=== PATIENT | male | born 1970 | race Caucasian/White ===

== ENCOUNTER 2017-05-20 22:36 | Inpatient (IN) | payer MEDICAID ==
[~2017-05-20] VITALS: Ht 175.3 cm; Wt 95.3 kg
[2017-05-20 23:25] VITALS: BP_SYST 104
--- NOTE | 2017-05-20 23:25 | NUR ---
Patient triaged and placed in waiting room. VSS and patient appears in no acute distress at this time. Accompanied by family, awaiting available bed, and MD notified of need for MSE.
--- NOTE | 2017-05-20 23:30 | NUR ---
Patient to ER bed 5 to gown for evaluation. Side rails up. Report given to Sandi STILES.
--- NOTE | 2017-05-20 23:35 | NUR ---
Patient to ER C/O 07/07 RLQ abdominal pain for the past 3 weeks, "on and off" states Hx of pancreatitis and multiple surgeries on pancreas. Denies N/V/D, C/O dark stool, afebrile, AAOx4, unlabored breathing, no signs of acute distress.
--- NOTE | 2017-05-20 23:39 | NUR ---
ER MD Garrett at bedside evaluating the patient
--- NOTE | 2017-05-20 23:50 | NUR ---
Refractory Repairer at bedside for blood draw. Patient identified x2
[2017-05-21 00:18] LABS: BILIRUBIN,URINE NEGATIVE (NEGATIVE); BLOOD, URINE NEGATIVE (NEGATIVE); CLARITY/URINE CLEAR (CLEAR); COLOR,URINE YELLOW (YELLOW); GLUCOSE,URINE NEGATIVE (NEGATIVE); KETONES,URINE NEGATIVE (NEGATIVE); LEUKOCYTE ESTERASE ,URINE NEGATIVE (NEGATIVE); NITRITE, URINE NEGATIVE (NEGATIVE); PROTEIN URINE NEGATIVE (NEGATIVE)
[2017-05-21 00:23] LABS: EOSINOPHILS # (AUTO) 0.1 K/uL (0.0-0.4); HEMOGLOBIN 15.1 g/dL (14.0-18.0); MEAN CORPUSCULAR HGB CONC 33 % (32-36); MONOCYTES # (AUTO) 0.3 K/uL (0.0-1.0)
[2017-05-21 00:28] LABS: BASOPHILS % (AUTO) 1.1 % (0.0-2.0); EOSINOPHILS % (AUTO) 4.6 % (0.0-4.0); HEMATOCRIT 45.4 % (36-54); LYMPHOCYTES # (AUTO) 0.9 K/uL (1.0-5.5); LYMPHOCYTES % (AUTO) 30.8 % (20.5-51.5); MEAN CORPUSCULAR HEMOGLOBIN 33 pg (27-31); MEAN CORPUSCULAR VOLUME 98 fL (79.0-98.0); MONOCYTES % (AUTO) 9.7 % (1.7-9.3); NEUTROPHILS # (AUTO) 1.7 K/uL (1.8-7.7); NEUTROPHILS % (AUTO) 53.8 % (40.0-70.0); PLATELET COUNT (AUTO) 74 K/uL (130-430); RED BLOOD CELL COUNT(AUTO) 4.62 MIL/uL (4.2-6.2); RED CELL DISTRIBUTION WIDTH 14.3 % (9.0-15.0)
[2017-05-21 00:30] LABS: CALCIUM 8.3 mg/dL (8.4-11.0); CREATININE 0.93 mg/dL (0.55-1.30); POTASSIUM 3.8 mmol/L (3.5-5.1)
[2017-05-21 00:34] LABS: ALBUMIN 3.3 g/dL (3.4-4.8); TOTAL BILIRUBIN 0.4 mg/dL (0.0-1.0); TOTAL PROTEIN, SERUM 7.3 g/dL (6.4-8.3)
[2017-05-21] MEDS ORDERED: NACL 0.9% 1,000 ML IV ONE (01:30)
--- NOTE | 2017-05-21 01:40 | NUR ---
# 20 gauge angiocath placed to right ac. Use of asceptic technique. Opsite placed over site. Blood return noted. Flushed with 10 cc of normal saline. No evidence of infiltration noted. Patient tolerated well.
--- NOTE | 2017-05-21 01:52 | NUR ---
Patient off the unit for CT scan via gurney.
[2017-05-21] MEDS ORDERED: IOHEXOL 100 ML IV ONE (01:58)
[2017-05-21] MEDS ORDERED: HYDROmorphone 1 MG INJ. 1 MG/ML AMPUL IVP ONE (02:00)
--- NOTE | 2017-05-21 02:41 | NUR ---
Patient does not meet SEPSIS protocol
--- NOTE | 2017-05-21 03:09 | NUR ---
Medication reconciliation - patient states "no home meds"
[2017-05-21] MEDS ORDERED: CIPROFLOXACIN LACT 400 MG/D5W 200 ML IV ONE (03:30)
[2017-05-21] MEDS ORDERED: metroNIDAZOLE 500 mg/NS 100 ML IV ONE (03:30)
--- NOTE | 2017-05-21 03:57 | NUR ---
Patient will be admitted to care of DR ONTIVEROS. Admitted to [facility] IN unit. Will go to room 135. Belongings list completed. Summary report printed. Report will be given at bedside.
--- NOTE | 2017-05-21 04:05 | NUR ---
Awaiting bed assignment. Patient HOLD in ER
--- NOTE | 2017-05-21 04:07 | NUR ---
Patient ER HOLD until bed & nurse available on the floor.
--- NOTE | 2017-05-21 04:14 | NUR ---
Patient C/O nausea. ER MD Garrett aware.
[2017-05-21] MEDS ORDERED: ONDANSETRON HCL 4 MG/2 ML VIAL IVP ONE (04:45)
--- NOTE | 2017-05-21 04:52 | NUR ---
Received bed assignment 126.
--- NOTE | 2017-05-21 04:52 | NUR ---
Transfer to [facility]. IV present no sign or symptom of infiltration.
--- NOTE | 2017-05-21 05:01 | NUR ---
ADMISSION NOTE: Received patient from ER via gurney. Patient admitted with diagnosis of Cholecystitis. Patient is awake, alert, oriented X 4. Patient oriented to hospital room, call light, toileting, pain management and safety-teach back done. Patient informed that I will be his nurse and that their room number is 126B. Personal belongings checked and Belongings List documented. Call light within reach.
[2017-05-21 05:08] VITALS: BP_SYST 114
[2017-05-21] MEDS: D5NS 1,000 ML IV SCH ×2 (05:22→13:40)
--- NOTE | 2017-05-21 05:53 | NUR ---
RN Notes: Pt alert and oriented, able to make needs known. Discussed the plan of care, verbalizes understanding well. Started IVF infusing well. Instructed pt that she will be NPO at this time. instructed to call for assistance or discomfort. Call light within easy reach. Safety precautions in place.
--- NOTE | 2017-05-21 06:47 | NUR ---
Closing notes: No significant changes. IVF infusing well, no infiltration noted. Pt stable, not in any distress.
--- NOTE | 2017-05-21 07:36 | NUR ---
INITIAL NOTE RECEIVED PATIENT FROM FLOATING LABOR GANG SUPERVISOR NURSE, PATIENT IS CURRENTLY RESTING IN BED, NO SIGNS OF DISTRESS NOTED, BREATHING IS EVEN AND UNLABORED, ASSESSMENT COMPLETE, PATIENT HAS IV IN RIGHT AC WITH FLUIDS INFUSING, NO SIGNS OF INFILTRATION NOTED, PATIENT HAS NO COMPLAINTS OF PAIN AT THIS TIME, INSTRUCTED PATIENT TO USE CALL HUANG IF ASSISTANCE IS NEEDED, PATIENT VERBALIZED UNDERSTANDING, CALL HUANG LEFT NEXT TO PATIENT'S HAND, BED IN LOWEST POSITION, SIDE RAILS UP FOR PATIENT'S SAFETY, FALL PRECAUTIONS IN PLACE, WILL CONTINUE TO MONITOR.
[2017-05-21] MEDS: LEVOFLOXACIN 500 MG/D5W 100 ML IV SCH (08:09)
--- NOTE | 2017-05-21 08:11 | NUR ---
MEDICATION IV ANTIBIOTIC IS CURRENTLY INFUSING, EDUCATED PATIENT ON REASON FOR MEDICATION AND IF IV SITE BEGINS TO HURT OR SWELL TO NOTIFY NURSE, PATIENT VERBALIZED UNDERSTANDING, NO OTHER NEEDS AT THIS TIME,WILL CONTINUE TO MONITOR, FALL PRECAUTIONS IN PLACE.
[2017-05-21 08:14] VITALS: BP_SYST 102
[2017-05-21] MEDS: ONDANSETRON HCL 4 MG/2 ML VIAL IVP PRN ×4 (08:52→18:14)
[2017-05-21] MEDS: MORPHINE 2 MG/ML INJ. SYRINGE IVP PRN (08:53)
--- NOTE | 2017-05-21 09:49 | NUR ---
RN ROUNDS PATIENT IS CURRENTLY RESTING IN BED, NO SIGNS OF DISTRESS NOTED, BREATHING IS EVEN AND UNLABORED, NO OTHER NEEDS AT THIS TIME, WILL CONTINUE TO MONITOR.
--- NOTE | 2017-05-21 10:46 | NUR ---
CONSULT GI ADOMINAL PAIN DR DUARTE [phone] S/W [facility] @ [phone]
--- NOTE | 2017-05-21 10:54 | NUR ---
CONSULT SURGICAL ABDOMINAL PAIN DR CABRAL [phone] S/W [facility] @ [phone]
--- NOTE | 2017-05-21 11:54 | NUR ---
RN ROUNDS PATIENT RESTING IN BED, PATIENT HAS NO COMPLAINTS OF PAIN AT THIS TIME, PROVIDED PATIENT WITH HOSPITAL PHONE, NO OTHER NEEDS WILL CONTINUE TO MONITOR, FALL PRECAUTIONS IN PLACE
[2017-05-21 12:06] VITALS: BP_SYST 116
[2017-05-21] MEDS: MORPHINE 4 MG/ML INJ. SYRINGE IVP PRN ×2 (13:39→18:13)
[2017-05-21] MEDS: metroNIDAZOLE 500 mg/NS 100 ML IV SCH ×2 (13:39→21:27)
--- NOTE | 2017-05-21 13:43 | NUR ---
RN ROUNDS PATIENT WAS GIVEN PRN PAIN MEDICATION DUE TO SEVERE ABDOMINAL PAIN, NO OTHER NEEDS AT THIS TIME WILL REASSESS EFFECTIVENESS, WILL CONTINUE TO MONITOR PATIENT, FALL PRECAUTIONS IN PLACE,
--- NOTE | 2017-05-21 15:30 | NUR ---
RN ROUNDS PATIENT IS WALKING AROUND WITH AND DAUGHTER, PATIENT GAIT IS STABLE, PATIENT HAS NO COMPLAINTS OF PAIN OR DISCOMFORT, NO OTHER NEEDS AT THIS TIME, WILL CONTINUE TO MONITOR.
[2017-05-21 16:36] VITALS: BP_SYST 113
--- NOTE | 2017-05-21 17:30 | NUR ---
RN ROUNDS PATIENT RESTING IN BED, FAMILY AT BEDSIDE, PATIENT HAS NO COMPLAINTS OF PAIN OR DISCOMFORT, WILL CONTINUE TO MONITOR, FALL PRECAUTIONS IN PLACE.
--- NOTE | 2017-05-21 18:19 | NUR ---
CLOSING NOTE PATIENT IS CURRENTLY RESTING IN BED, NO SIGNS OF DISTRESS NOTED, BREATHING IS EVEN AND UNLABORED, PATIENT WAS GIVEN PRN PAIN MEDICATION, WILL REASSESS EFFECTIVENESS, ALL NEEDS MET, WILL ENDORSE TO ANCHORMAN NURSE, TO KEEP PATIENT NPO AFTER MIDNIGHT AND NO PAIN MEDICATIONS AFTER 5AM, PATIENT IS AWARE, CALL HUANG LEFT NEXT TO PATIENT'S HAND, BED IN LOWEST POSITION, SIDE RAILS UP, FALL PRECAUTIONS IN PLACE
[2017-05-21 19:44] LABS: BARBITURATE, URINE NEGATIVE (NEG <=200); BENZODIAZEPINE, URINE NEGATIVE (NEG <=150); COCAINE, URINE NEGATIVE (NEG <=150); METHAMPHETAMINES SCREEN,URINE NEGATIVE (NEG <=500); URINE AMPHETAMINE NEGATIVE (NEG <=500); URINE METHADONE NEGATIVE (NEG <=200)
[2017-05-21 19:45] LABS: CANNABINOID, URINE POSITIVE (NEG <=50); OPIATE, URINE POSITIVE (NEG <=100); PHENCYCLIDINE SCREEN,URINE NEGATIVE (NEG <=25); UR TRICYCLIC ANTIDEPRESSANTS NEGATIVE (NEG <=300); URINE OXYCODONE SCREEN NEGATIVE (NEG <=100); URINE PROPOXYPHENE SCREEN NEGATIVE (NEG <=300)
--- NOTE | 2017-05-21 19:48 | NUR ---
Initial Notes Patient alert and oriented, able to make needs known. Patient denies pain at this time. No SOB noted, on room air. IV site patent, flushes well. Denies nausea/vomiting at this time. Patient independent with bed mobility and ambulation. Goal of pain management, GI stability and safety this shift. Call light within reach. Will continue to monitor.
[2017-05-21 20:17] LABS: IRON (SERUM) 230 mcg/dL (59-158); TOTAL IRON BIND. CAPACITY 241 ug/dL (250-450)
[2017-05-21 20:19] VITALS: BP_SYST 108
--- NOTE | 2017-05-21 22:20 | NUR ---
Notes Patient resting in bed. No s/s of pain noted. No SOB noted. IV site patent , flushes well, infusing antibiotic at this time. Call light within reach. Will continue to monitor.
--- NOTE | 2017-05-22 00:20 | NUR ---
Notes Patient sleeping at this time. No SOB noted. No s/s of pain noted. Patient repositioned in bed. Afebrile. Call light within reach. Will continue to monitor.
[2017-05-22 00:49] VITALS: BP_SYST 108
[2017-05-22] MEDS: D5NS 1,000 ML IV SCH ×3 (01:46→20:16)
[2017-05-22] MEDS: MORPHINE 4 MG/ML INJ. SYRINGE IVP PRN ×4 (01:47→21:25)
--- NOTE | 2017-05-22 02:20 | NUR ---
Notes Patient resting in bed. No s/s of pain noted. No SOB noted. IV site patent , flushes well. Call light within reach. Will continue to monitor.
[2017-05-22 03:25] VITALS: BP_SYST 101
--- NOTE | 2017-05-22 04:02 | NUR ---
Notes Patient sleeping at this time. No SOB noted. Patient recently medicated with pain medicine. Patient repositioned in bed. Afebrile. Call light within reach. Will continue to monitor.
[2017-05-22] MEDS: metroNIDAZOLE 500 mg/NS 100 ML IV SCH ×3 (05:31→21:19)
--- NOTE | 2017-05-22 06:34 | NUR ---
Closing Notes Patient denies pain at this time. No SOB noted, on room air. IV site patent, flushes well. Denies nausea/vomiting at this time. Goal of pain management, GI stability and safety met. Call light within reach. Will continue to monitor.
--- NOTE | 2017-05-22 07:28 | NUR ---
INITIAL NOTE PATIENT IS CURRENTLY RESTING IN BED, NO SIGNS OF DISTRESS NOTED, BREATHING IS EVEN AND UNLABORED, ASSESSMENT COMPLETE, IV IN RIGHT AC WITH FLUIDS INFUSING, NO SIGNS OF INFILTRATION NOTED, PATIENT IS AWARE NOT TO HAVE ANYTHING BY MOUTH, OR PAIN MEDICATIONS DUE TO HIDA SCAN THAT IS SCHEDULED FOR THIS MORNING, INSTRUCTED PATIENT TO USE CALL HUANG IF ASSISTANCE IS NEEDED, PATIENT VERBALIZED UNDERSTANDING, CALL HUANG LEFT NEXT TO PATIENT'S HAND, BED IN LOWEST POSITION, SIDE RAILS UP FOR PATIENT'S SAFETY, FALL PRECAUTIONS IN PLACE, WILL CONTINUE TO MONITOR.
--- NOTE | 2017-05-22 08:01 | NUR ---
PATIENT OFF UNIT FOR PROCEDURE, PATIENT IN STABLE CONDITION
[2017-05-22] MEDS: ONDANSETRON HCL 4 MG/2 ML VIAL IVP PRN ×2 (10:37→16:25)
[2017-05-22] MEDS: LEVOFLOXACIN 500 MG/D5W 100 ML IV SCH (10:37)
--- NOTE | 2017-05-22 10:45 | NUR ---
RN ROUNDS PATIENT IS BACK ON UNIT, PATIENT IN STABLE CONDITION, IV ANTIBIOTICS ARE NOW INFUSING, LATE DUE TO PATIENT BEING OFF UNIT, PATIENT WAS GIVEN PAIN MEDICATION, CALL HUANG LEFT NEXT TO PATIENT HAND, BED IN LOWEST POSITION, SIDE RAILS UP, FALL PRECAUTIONS IN PLACE, WILL CONTINUE TO MONITOR, FALL PRECAUTIONS IN PLACE.
--- NOTE | 2017-05-22 12:00 | NUR ---
DR. MISHA CABRAL AWARE OF HIDA SCAN RESULTS, NO SURGICAL INTERVENTION AT THIS TIME PER DR. CABRAL, PATIENT AWARE, DR. CABRAL ORDERED LIPASE LAB LEVELS
[2017-05-22 12:07] VITALS: BP_SYST 132
--- NOTE | 2017-05-22 12:26 | NUR ---
RN ROUNDS PATIENT IS RESTING IN BED, FAMILY AT BEDSIDE, INSTRUCTED PATIENT TO CALL IF ASSISTANCE IS NEEDED, FALL PRECAUTIONS IN PLACE, WILL CONTINUE TO MONITOR.
--- NOTE | 2017-05-22 14:06 | NUR ---
DR. CABRAL NOTIFIED DR. CABRAL OF PATIENT'S LIPASE LEVELS, INSTRUCTED TO START PATIENT ON CLEAR LIQUID DIET
--- NOTE | 2017-05-22 14:07 | NUR ---
RN ROUNDS PATIENT LYING IN BED, PATIENT AT BEDSIDE, WILL INFORM PATIENT ABOUT DR. MÉNDEZ
--- NOTE | 2017-05-22 16:29 | NUR ---
RN ROUNDS PATIENT LYING IN BED, PATIENT REQUEST PAIN MEDICATION FOR PAIN, PRN PAIN MEDICATION GIVEN, WILL REASSESS EFFECTIVENESS, NO OTHER NEEDS AT THIS TIME, FALL PRECAUTIONS IN PLACE.
[2017-05-22 17:03] VITALS: BP_SYST 129
--- NOTE | 2017-05-22 18:33 | NUR ---
CLOSING NOTE PATIENT IS CURRENTLY RESTING IN BED, NO SIGNS OF DISTRESS NOTED, ALL NEEDS MET, WILL ENDORSE TO ENVIRONMENTAL AIR SPECIALIST NURSE, CALL HUANG LEFT NEXT TO PATIENT'S HAND, BED IN LOWEST POSITION, SIDE RAILS UP, FALL PRECAUTIONS IN PLACE
[2017-05-22 20:00] VITALS: BP_SYST 137
--- NOTE | 2017-05-22 20:15 | NUR ---
Initial Note Patient awake, alert and oriented. No SOB noted. Denies any n/v and pain at this time. IVF infusing. No peripheral edema noted. Needs attended. Kept warm and comfortable.
--- NOTE | 2017-05-22 22:00 | NUR ---
Note Patient's family arrived. No complaints. Unhooked patient from IVF. Patient went out to smoke and back after few minutes. Resumed IVF. Kept warm and comfortable.
--- NOTE | 2017-05-23 | NUR ---
Note Sleeping at this time. No distress noted.
[2017-05-23 00:52] VITALS: BP_SYST 129
--- NOTE | 2017-05-23 02:00 | NUR ---
Note Sleeping at this time. IVF infusing. No SOB noted.
[2017-05-23 03:46] VITALS: BP_SYST 103
--- NOTE | 2017-05-23 04:00 | NUR ---
RN Note Patient asleep but easily arousable. IVF infusing. No distress noted.
[2017-05-23] MEDS: metroNIDAZOLE 500 mg/NS 100 ML IV SCH ×3 (05:03→21:02)
[2017-05-23] MEDS: D5NS 1,000 ML IV SCH ×2 (05:03→16:38)
--- NOTE | 2017-05-23 06:32 | NUR ---
End Note No changes from previous assessment. No complain of SOB or n/v throughout the night. Complain of pain once last night and was able to sleep all night. IVF infusing. Needs attended. Kept warm and comfortable.
--- NOTE | 2017-05-23 08:00 | NUR ---
INITIAL NOTE PATIENT IS CURRENTLY RESTING IN BED, NO SIGNS OF DISTRESS NOTED, BREATHING IS EVEN AND UNLABORED, ASSESSMENT COMPLETE, IV WITH FLUIDS INFUSING, NO SIGNS OF INFILTRATION NOTED, INSTRUCTED PATIENT TO USE CALL HUANG IF ASSISTANCE IS NEEDED, PATIENT VERBALIZED UNDERSTANDING, CALL HUANG LEFT NEXT TO PATIENT'S HAND, BED IN LOWEST POSITION, SIDE RAILS UP FOR PATIENT'S SAFETY, FALL PRECAUTIONS IN PLACE, WILL CONTINUE TO MONITOR.
[2017-05-23 08:47] LABS: ALBUMIN 2.7 g/dL (3.4-4.8); CALCIUM 7.8 mg/dL (8.4-11.0); CREATININE 0.96 mg/dL (0.55-1.30); POTASSIUM 3.4 mmol/L (3.5-5.1); TOTAL BILIRUBIN 0.8 mg/dL (0.0-1.0); TOTAL PROTEIN, SERUM 6.1 g/dL (6.4-8.3)
[2017-05-23 08:55] LABS: BASOPHILS % (AUTO) 1.3 % (0.0-2.0); EOSINOPHILS # (AUTO) 0.1 K/uL (0.0-0.4); HEMATOCRIT 41.1 % (36-54); HEMOGLOBIN 13.9 g/dL (14.0-18.0); LYMPHOCYTES # (AUTO) 0.6 K/uL (1.0-5.5); MEAN CORPUSCULAR HEMOGLOBIN 33 pg (27-31); MEAN CORPUSCULAR HGB CONC 34 % (32-36); MEAN CORPUSCULAR VOLUME 98 fL (79.0-98.0); MONOCYTES # (AUTO) 0.2 K/uL (0.0-1.0); NEUTROPHILS # (AUTO) 1.5 K/uL (1.8-7.7); NEUTROPHILS % (AUTO) 61.7 % (40.0-70.0); RED BLOOD CELL COUNT(AUTO) 4.21 MIL/uL (4.2-6.2); RED CELL DISTRIBUTION WIDTH 14.1 % (9.0-15.0); WHITE BLOOD COUNT (AUTO) 2.4 K/uL (4.8-10.8)
[2017-05-23] MEDS: LEVOFLOXACIN 500 MG/D5W 100 ML IV SCH (09:25)
[2017-05-23] MEDS: MORPHINE 2 MG/ML INJ. SYRINGE IVP PRN ×4 (10:06→21:03)
[2017-05-23 12:00] VITALS: BP_SYST 103
--- NOTE | 2017-05-23 12:00 | NUR ---
MED WITH MORPHINE 2MG FOR PAIN. VERBALISE RELIEVE 30MIN AFTER MED.
[2017-05-23 13:05] LABS: PLATELET COUNT (AUTO) 59 K/uL (130-430)
[2017-05-23 16:40] VITALS: BP_SYST 119
--- NOTE | 2017-05-23 18:00 | NUR ---
MED FOR PAIN WITH MORPHINE 2MG. VERBALISE RELIEVE 30MIN AFTER MED. NO S/S OF ANY ACUTE DISTRESS NOTED. WILL CONT TO MONITOR AT THIS TIME.
[2017-05-23 20:00] VITALS: BP_SYST 118
--- NOTE | 2017-05-23 20:15 | NUR ---
Initial Note PAtient is awake, alert and oriented. No SOB noted. Denies any pain or n/v at this time. IVF infusing. Needs attended. Kept warm and comfortable.
--- NOTE | 2017-05-23 22:00 | NUR ---
RN Note Patient's family arrived . Disconnected IVF for the meantime. Patient went outside to smoke via wheelchair. Came back after few minutes. Resumed IVF. No complain of pain.
[2017-05-23 23:51] VITALS: BP_SYST 117
--- NOTE | 2017-05-24 | NUR ---
RN Note Patient asleep. No distress noted. IVF infusing.
--- NOTE | 2017-05-24 02:00 | NUR ---
RN Note Sleeping comfortably in bed. No signs and symptoms of distress noted.
[2017-05-24] MEDS: D5NS 1,000 ML IV SCH ×3 (02:12→21:12)
--- NOTE | 2017-05-24 04:00 | NUR ---
RN Note Sleeping but easily arousable. IVF infusing. No SOB noted. No complaints. Kept warm.
[2017-05-24 04:15] VITALS: BP_SYST 100
[2017-05-24] MEDS: metroNIDAZOLE 500 mg/NS 100 ML IV SCH ×3 (05:12→21:10)
--- NOTE | 2017-05-24 06:16 | NUR ---
End Note Afebrile. Vital signs stable. No changes from previous assessment. No complain of SOB or n/v throughout the night. Complain of pain only once last night and was relieved. Went out to smoke one time last night. Ambulates with steady gait. Needs attended. Kept warm and comfortable.
--- NOTE | 2017-05-24 08:00 | NUR ---
Opening Note Report received from Janie STILES. Patient is in stable condition and is currently resting in bed. No signs of distress noted at the moment. Call light is within reach. IV is on the RAC 20g running D5NS@100ml/hr. Will continue to monitor.
[2017-05-24 08:40] VITALS: BP_SYST 107
[2017-05-24] MEDS: LEVOFLOXACIN 500 MG/D5W 100 ML IV SCH (08:40)
[2017-05-24] MEDS: MORPHINE 2 MG/ML INJ. SYRINGE IVP PRN ×2 (08:40→14:05)
--- NOTE | 2017-05-24 10:03 | NUR ---
Rounds Patient is resting in bed. Call light is within reach and bed is in low position.
[2017-05-24 12:07] VITALS: BP_SYST 123
--- NOTE | 2017-05-24 12:20 | NUR ---
Rounds Patient is resting in bed. Call light is within reach. No complaints of abdominal pain noted.
--- NOTE | 2017-05-24 14:30 | NUR ---
Rounds Medicated that patient for abdominal pain 04/06. Will reassess.
[2017-05-24 16:00] VITALS: BP_SYST 134
--- NOTE | 2017-05-24 16:30 | NUR ---
Rounds Patient in stable condition. No signs of distress noted.
--- NOTE | 2017-05-24 18:50 | NUR ---
Closing Note Patient is in stable condition and is currently resting in bed. Iv is on the RAC 20g running D5NS@100m/hr. Call light is within reach and bed is in low position. Will give report to the oncoming nurse.
[2017-05-24 20:00] VITALS: BP_SYST 132
[2017-05-24 20:56] LABS: AFP, TUMOR MARKER 5.7 ng/mL (0.0-8.3); ALPHA-1-ANTITRYPSIN, S 130 mg/dL (90-200); ANTI NUCLEAR AB WITH REFLEX Negative (Negative); ANTI-SMOOTH MUSCLE AB 14 Units (0-19); CERULOPLASMIN 16.4 mg/dL (16.0-31.0); HEPATITIS A AB, IgM Negative (Negative); HEPATITIS B CORE AB, IgM Negative (Negative); HEPATITIS B SURFACE AG Negative (Negative); LIVER-KIDNEY MICROSOMAL AB 2.1 Units (0.0-20.0)
[2017-05-24] MEDS: ONDANSETRON HCL 4 MG/2 ML VIAL IVP PRN (21:10)
[2017-05-24] MEDS: MORPHINE 4 MG/ML INJ. SYRINGE IVP PRN (21:11)
--- NOTE | 2017-05-24 21:35 | NUR ---
PATIENT AWAKE ALERT ASSIST OUT OF BED TO WHEEL CHAIR , FAMILY ASSIST PATIENT OUT SIDE , SKIN DRY WARM NO ACUTE DISTRESS .
--- NOTE | 2017-05-24 21:45 | NUR ---
MECHANICAL SOFT PO DIET PATIENT TOLERATING NO COMPLAINTS MADE .
--- NOTE | 2017-05-25 | NUR ---
MORPHINE SULFATE 4 MG IVP GIVEN FOR GENERAL DISCOMFORT & HELPFUL , patient resting .
[2017-05-25 01:07] VITALS: BP_SYST 129
[2017-05-25 03:44] VITALS: BP_SYST 130
--- NOTE | 2017-05-25 03:48 | NUR ---
Hourly Rounding patient resting HOB elevated , on room air respirations regular also unlabored call maher with PT .
--- NOTE | 2017-05-25 05:56 | NUR ---
PATIENT RESTING THIS HOUR VERBALLY RESPONSIVE SKIN DRY WARM ASSIST NEEDED .
[2017-05-25] MEDS: metroNIDAZOLE 500 mg/NS 100 ML IV SCH ×2 (07:30→13:02)
--- NOTE | 2017-05-25 07:51 | NUR ---
OPENING NOTE: PT RESTING IN BED. NO ACUTE SIGNS OF RESP DISTRESS, NO SOB. IV INTACT AND PATENT, NO REDNESS/SWELLING. BED AT LOWEST POSITION, CALL LIGHT IN REACH, SIDE RAILX3.
[2017-05-25] MEDS: D5NS 1,000 ML IV SCH (08:00)
[2017-05-25] MEDS: LEVOFLOXACIN 500 MG/D5W 100 ML IV SCH (08:16)
[2017-05-25 08:19] VITALS: BP_SYST 109
[2017-05-25] MEDS: MORPHINE 4 MG/ML INJ. SYRINGE IVP PRN (10:25)
[2017-05-25 10:54] LABS: BASOPHILS % (AUTO) 1.4 % (0.0-2.0); EOSINOPHILS # (AUTO) 0.1 K/uL (0.0-0.4); EOSINOPHILS % (AUTO) 2.9 % (0.0-4.0); HEMATOCRIT 42.4 % (36-54); HEMOGLOBIN 14.6 g/dL (14.0-18.0); LYMPHOCYTES # (AUTO) 0.7 K/uL (1.0-5.5); LYMPHOCYTES % (AUTO) 23.4 % (20.5-51.5); MEAN CORPUSCULAR HEMOGLOBIN 34 pg (27-31); MEAN CORPUSCULAR HGB CONC 34 % (32-36); MEAN CORPUSCULAR VOLUME 98 fL (79.0-98.0); MONOCYTES # (AUTO) 0.4 K/uL (0.0-1.0); MONOCYTES % (AUTO) 12.7 % (1.7-9.3); NEUTROPHILS # (AUTO) 1.6 K/uL (1.8-7.7); NEUTROPHILS % (AUTO) 59.6 % (40.0-70.0); PLATELET COUNT (AUTO) 67 K/uL (130-430); RED BLOOD CELL COUNT(AUTO) 4.34 MIL/uL (4.2-6.2); WHITE BLOOD COUNT (AUTO) 2.8 K/uL (4.8-10.8)
--- NOTE | 2017-05-25 11:32 | NUR ---
ROUNDING: PT RESTING IN BED, AWAKE ALERT AND ORIENTED. NO ACUTE SIGNS OF RESP DISTRESS, NO SOB. IV INTACT AND PATENT, NO REDNESS/SWELLING/PAIN. SKIN COLOR NORMAL FOR ETHNICITY. BED AT LOWEST POSITION, CALL LIGHT IN REACH, SIDE RAILX3.
[2017-05-25 11:39] VITALS: BP_SYST 124
[2017-05-25] MEDS ORDERED: METR500T PO (11:45)
[2017-05-25 12:22] VITALS: BP_SYST 123
--- NOTE | 2017-05-25 13:56 | NUR ---
ROUNDING: PT RESTING IN BED, HIGH FOWLERS. NO ACUTE SIGNS OF RESP DISTRESS, NO SOB. SKIN WARM DRY AND COLOR NORMAL FOR ETHNICITY. IV INTACT AND PATENT, NO REDNESS/SWELLING/PAIN. PT DENIES PAIN, DIZZINESS/LIGHTHEADED, N/V AT THIS TIME. PT STATES HIS WILL ARRIVE SOON. BED AT LOWEST POSITION, CALL LIGHT IN REACH. CONTINUE TO MONITOR.
--- NOTE | 2017-05-25 14:10 | NUR ---
D/C Patient Patient given medication reconciliation form and D/C instructions. Exit Care provided. Patient verbalized understanding. MD discussed with patient the results and treatment provided. Ambulatory with steady gait for discharge to home. Patient in stable condition, ID band removed. IV catheter removed, intact and dressing applied, no active bleeding. Rx of given. Patient educated on pain management. All belongings sent with patient. educated patient to follow up with primary carre provider and tertiary. patient verbalized understanding.
[2017-05-27 10:21] LABS: FERRITIN 766 ng/mL (30-400)
== END 2017-05-25 14:10 | disposition home or self-care (01) ==
LOC: SED 22:36 → SMU 05-21 03:58
PROVIDERS: ADMIT Internal Medicine Hospice and Palliative Medicine; ATTEND Internal Medicine Hospice and Palliative Medicine
DX: K80.10 Calculus of gallbladder with chronic cholecystitis without obstruction (principal); K70.30 Alcoholic cirrhosis of liver without ascites; D69.6 Thrombocytopenia, unspecified; E44.0 Moderate protein-calorie malnutrition; R16.1 Splenomegaly, not elsewhere classified; K72.90 Hepatic failure, unspecified without coma; F10.10 Alcohol abuse, uncomplicated; F17.200 Nicotine dependence, unspecified, uncomplicated; Y90.9 Presence of alcohol in blood, level not specified; Z93.3 Colostomy status; Z68.31 Body mass index [BMI] 31.0-31.9, adult
CPT/HCPCS: 36415; 76700-TC; 78226; 80053; 80074; 80307; 81003; 82103; 82105; 82390; 82728; 83516; 83540-TC; 83550-TC; 83605; 83690-TC; 84484; 85025; 86038; 86376; 87040-TC; 93005; 96361; 96365; 96367; 96375; 99285; A9537; J0744; J1170; J1956; J2270; J2405; J3490; J7030; J7042; Q9967